=== PATIENT | male | born 1980 | race Caucasian/White ===

== ENCOUNTER 2018-06-25 23:31 | Emergency (ER) | payer OTHER ==
[2018-06-25 23:37] VITALS: RESP 18; TEMP 98.3
[2018-06-26] MEDS ORDERED: SODIUM CHLORIDE 0.9% 1,000 ML IV STA (00:07)
[2018-06-26 00:19] LABS: Anisocytosis Slight; Basophils # (A) 0.1 k/uL (0-0.2); Basophils % (A) 1 %; Eosinophils # (A) 0.2 k/uL (0-0.7); Eosinophils % (A) 2 %; HCT 35.6 % (39.0-53.0); HGB 11.2 gm/dL (13.0-17.5); Hypochromasia Moderate; Lymphocytes # (A) 1.1 k/uL (1.0-4.8); Lymphocytes % (A) 15 %; MCH 34.3 pg (25.0-35.0); MCHC 31.5 g/dL (31.0-37.0); MCV 108.9 fL (80.0-100.0); Macrocytosis Marked; Monocytes # (A) 0.7 k/uL (0-1.0); Monocytes % (A) 9 %; Neutrophils % (A) 70 %; Platelet Count 283 k/uL (150-450); RBC 3.27 m/uL (4.30-5.90); RDW 17.9 % (11.5-15.5); WBC 7.1 k/uL (3.8-10.6)
[2018-06-26 00:20] LABS: Glucose,Whole Blood 112 mg/dL (75-99)
[2018-06-26 00:31] LABS: ALT 32 U/L (21-72); AST 37 U/L (17-59); Albumin 4.3 g/dL (3.5-5.0); Alkaline Phosphatase 88 U/L (38-126); Anion Gap 11 mmol/L; Blood Urea Nitrogen 12 mg/dL (9-20); Calcium 9.8 mg/dL (8.4-10.2); Carbon Dioxide 24 mmol/L (22-30); Chloride 104 mmol/L (98-107); Glucose 89 mg/dL (74-99); Sodium 139 mmol/L (137-145); Total Bilirubin 0.5 mg/dL (0.2-1.3)
[2018-06-26 00:32] LABS: Appearance,Urine Clear (Clear); Bilirubin,Urine Negative (Negative); Blood,Urine Negative (Negative); Color,Urine Yellow; Glucose,Urine (UA) Negative (Negative); Ketones,Urine Negative (Negative); Leukocyte Esterase,Urine Negative (Negative); Nitrite,Urine Negative (Negative); Protein,Urine Trace (Negative); Specific Gravity,Urine 1.015 (1.001-1.035); Urobilinogen,Urine <2.0 mg/dL (<2.0)
--- NOTE | 2018-06-26 00:37 | ED ---
Seizure HPI - General Source: patient, EMS Mode of arrival: EMS Limitations: no limitations <Rox Davis - Last Filed: 06/26/18 02:23> <Ashwini Bocanegra - Last Filed: 06/28/18 03:28> - General Chief Complaint: Seizure Stated Complaint: Seizure Time Seen by Provider: 06/25/18 23:38 - History of Present Illness Initial Comments: 38-year-old male patient presents to the emergency department today for evalua tion after experiencing a seizure. Patient states he was walking down the hallway next he knew he woke up on the floor. Patient apparently hit his head as he does have a laceration to the scalp. Patient denies any current symptoms. Patient states he feels "normal". Denies any headache, blurred vision, double vision, numbness, tingling, or weakness to his extremities. He denies any dizziness or weakness. Patient denies any history of seizures. Patient is currently receiving treatment at [facility] for alcohol withdrawal. He has been at the facility for the last 6 days. Patient denies any recent rash, fever, chills, shortness breath, chest pain, abdominal pain, nausea , vomiting, diarrhea, constipation, back pain, hematuria, dysuria, urinary urgency, urinary frequency, or any other complaints. (Rox Davis) - Related Data Previous Rx's Medication Instructions Recorded chlordiazePOXIDE HCl [Librium] 50 mg PO QID #34 capsule 06/26/18 Allergies Allergy/AdvReac Type Severity Reaction Status Date / Time No Known Allergies Allergy Verified 06/26/18 00:08 Review of Systems ROS Other: All systems not noted in ROS Statement are negative. <Rox Davis - Last Filed: 06/26/18 02:23> ROS Other: All systems not noted in ROS Statement are negative. <Ashwini Bocanegra - Last Filed: 06/28/18 03:28> ROS Statement: Those systems with pertinent positive or pertinent negative responses have been documented in the HPI. Past Medical History Past Medical History: Asthma History of Any Multi-Drug Resistant Organisms: None Reported Past Psychological History: No Psychological Hx Reported Smoking Status: Current every day smoker Past Alcohol Use History: Abuse Past Drug Use History: None Reported <Rox Davis - Last Filed: 06/26/18 02:23> General Exam Limitations: no limitations General appearance: alert, in no apparent distress, other (Physical well- developed, well-nourished adult male patient in no acute distress. Vital signs upon presentation are temperature 98.3F, pulse 107, respirations 18, blood pressure 134/90, pulse ox 98% on room air.) Head exam: Present: other (There is a 3 cm laceration noted to the left posterior parietal scalp.) Eye exam: Present: normal appearance, PERRL, EOMI. Absent: scleral icterus, conjunctival injection, periorbital swelling ENT exam: Present: normal exam, normal oropharynx, mucous membranes moist Respiratory exam: Present: normal lung sounds bilaterally. Absent: respiratory distress, wheezes, rales, rhonchi, stridor Cardiovascular Exam: Present: regular rate, normal rhythm, normal heart sounds. Absent: systolic murmur, diastolic murmur, rubs, gallop, clicks GI/Abdominal exam: Present: soft, normal bowel sounds. Absent: distended, tenderness, guarding, rebound, rigid Neurological exam: Present: alert, oriented X3, CN II-XII intact, other (Strength in all 4 extremities is 5/5.) Psychiatric exam: Present: normal affect, normal mood Skin exam: Present: warm, dry, intact, normal color. Absent: rash <Rox Davis - Last Filed: 06/26/18 02:23> Course Vital Signs 06/25/18 06/26/18 23:32 01:56 Temperature 98.3 F 98.3 F Pulse Rate 107 H 86 Respiratory 18 18 Rate Blood Pressure 134/90 142/88 O2 Sat by Pulse 98 98 Oximetry Procedures - Laceration Laceration #1 Consent Obtained: verbal consent Indication: laceration Site: scalp Size (cm): 3 Description: linear Depth: simple, single layer Type of Sutures: other ([place]) Number of Sutures: 4 Patient Tolerated Procedure: well, no complications <Rox Davis Last Filed: 06/26/18 02:23> Medical Decision Making - Lab Data Result diagrams: 06/25/18 23:47 06/25/18 23:47 - EKG Data -: EKG Interpreted by Pr <Rox Davis Last Filed: 06/26/18 02:23> - Lab Data Result diagrams: 06/25/18 23:47 06/25/18 23:47 <Ashwini Bocanegra - Last Filed: 06/28/18 03:28> - Medical Decision Making 38-year-old male patient presents to the emergency department today for evaluation after having a seizure, falling and striking his head. Physical examination did reveal a 3 cm laceration to the left parietal scalp. No active bleeding. No bony step-off or deformity to firm palpation of the skull. Patient has no neurologic deficits. Patient reports feeling "normal". Labs re viewed and are unremarkable. Did clear patient's C-spine, he does have full range of motion with no pain or limitation. I did repair laceration using janeth. He'll be discharged back to [facility] facility. He will be started on Librium to aid with withdrawn to prevent further seizures. Return parameters were discussed in detail. He verbalizes understanding and agrees with this plan for (Rox Davis) I was available for consultation in the emergency department. The history and physical exam were done by the midlevel provider. I was consulted for this patient's care. I reviewed the case with the midlevel provider and based on their presentation of the patient, I agree with the assessment, medical decision making and plan of care as documented. Chart was dictated using [employer] dictation software. Attempts were made to correct any dictation errors however some typographical errors may persist. (Ashwini Bocanegra) - Lab Data Lab Results 06/25/18 06/25/18 06/26/18 Range/Units 23:47 23:47 00:15 WBC 7.1 (3.8-10.6) k/uL RBC 3.27 L (4.30-5.90) m/uL Hgb 11.2 L (13.0-17.5) gm/dL Hct 35.6 L (39.0-53.0) % MCV 108.9 H (80.0-100.0) fL MCH 34.3 (25.0-35.0) pg MCHC 31.5 (31.0-37.0) g/dL RDW 17.9 H (11.5-15.5) % Plt Count 283 (150-450) k/uL Neutrophils % 70 % Lymphocytes % 15 % Monocytes % 9 % Eosinophils % 2 % Basophils % 1 % Neutrophils # 5.0 (1.3-7.7) k/uL Lymphocytes # 1.1 (1.0-4.8) k/uL Monocytes # 0.7 (0-1.0) k/uL Eosinophils # 0.2 (0-0.7) k/uL Basophils # 0.1 (0-0.2) k/uL Manual Slide Review Performed Hypochromasia Moderate Anisocytosis Slight Macrocytosis Marked Sodium 139 (137-145) mmol/L Potassium 5.0 (3.5-5.1) mmol/L Chloride 104 (98-107) mmol/L Carbon Dioxide 24 (22-30) mmol/L Anion Gap 11 mmol/L BUN 12 (9-20) mg/dL Creatinine 0.61 L (0.66-1.25) mg/dL Est GFR (CKD-EPI)AfAm >90 (>60 ml/min/1.73 sqM) Est GFR (CKD-EPI)NonAf >90 (>60 ml/min/1.73 sqM) Glucose 89 (74-99) mg/dL POC Glucose (mg/dL) (75-99) mg/dL POC Glu [employer]visor ID Calcium 9.8 (8.4-10.2) mg/dL Total Bilirubin 0.5 (0.2-1.3) mg/dL AST 37 (17-59) U/L ALT 32 (21-72) U/L Alkaline Phosphatase 88 (38-126) U/L Total Protein 7.0 (6.3-8.2) g/dL Albumin 4.3 (3.5-5.0) g/dL Urine Color Yellow Urine Appearance Clear (Clear) Urine pH 7.0 (5.0-8.0) Ur Specific [place] 1.015 (1.001-1.035) Urine Protein Trace H (Negative) Urine Glucose (UA) Negative (Negative) Urine Ketones Negative (Negative) Urine Blood Negative (Negative) Urine Nitrite Negative (Negative) Urine Bilirubin Negative (Negative) Urine Urobilinogen <2.0 (<2.0) mg/dL Ur Leukocyte Esterase Negative (Negative) Urine Opiates Screen Not Detected (NotDetected) Ur Oxycodone Screen Not Detected (NotDetected) Urine Methadone Screen Not Detected (NotDetected) Ur Propoxyphene Screen Not Detected (NotDetected) Ur Barbiturates Screen Not Detected (NotDetected) U Tricyclic Antidepress Not Detected (NotDetected) Ur Phencyclidine Scrn Not Detected (NotDetected) Ur Amphetamines Screen Not Detected (NotDetected) U Methamphetamines Scrn Not Detected (NotDetected) U Benzodiazepines Scrn Not Detected (NotDetected) Urine Cocaine Screen Not Detected (NotDetected) U Marijuana (THC) Screen Not Detected (NotDetected) 06/26/18 Range/Units 00:18 WBC (3.8-10.6) k/uL RBC (4.30-5.90) m/uL Hgb (13.0-17.5) gm/dL Hct (39.0-53.0) % MCV (80.0-100.0) fL MCH (25.0-35.0) pg MCHC (31.0-37.0) g/dL RDW (11.5-15.5) % Plt Count (150-450) k/uL Neutrophils % % Lymphocytes % % Monocytes % % Eosinophils % % Basophils % % Neutrophils # (1.3-7.7) k/uL Lymphocytes # (1.0-4.8) k/uL Monocytes # (0-1.0) k/uL Eosinophils # (0-0.7) k/uL Basophils # (0-0.2) k/uL Manual Slide Review Hypochromasia Anisocytosis Macrocytosis Sodium (137-145) mmol/L Potassium (3.5-5.1) mmol/L Chloride (98-107) mmol/L Carbon Dioxide (22-30) mmol/L Anion Gap mmol/L BUN (9-20) mg/dL Creatinine (0.66-1.25) mg/dL Est GFR (CKD-EPI)AfAm (>60 ml/min/1.73 sqM) Est GFR (CKD-EPI)NonAf (>60 ml/min/1.73 sqM) Glucose (74-99) mg/dL POC Glucose (mg/dL) 112 H (75-99) mg/dL POC Glu [employer]visor ID Kae Duvall Calcium (8.4-10.2) mg/dL Total Bilirubin (0.2-1.3) mg/dL AST (17-59) U/L ALT (21-72) U/L Alkaline Phosphatase (38-126) U/L Total Protein (6.3-8.2) g/dL Albumin (3.5-5.0) g/dL Urine Color Urine Appearance (Clear) Urine pH (5.0-8.0) Ur Specific [place] (1.001-1.035) Urine Protein (Negative) Urine Glucose (UA) (Negative) Urine Ketones (Negative) Urine Blood (Negative) Urine Nitrite (Negative) Urine Bilirubin (Negative) Urine Urobilinogen (<2.0) mg/dL Ur Leukocyte Esterase (Negative) Urine Opiates Screen (NotDetected) Ur Oxycodone Screen (NotDetected) Urine Methadone Screen (NotDetected) Ur Propoxyphene Screen (NotDetected) Ur Barbiturates Screen (NotDetected) U Tricyclic Antidepress (NotDetected) Ur Phencyclidine Scrn (NotDetected) Ur Amphetamines Screen (NotDetected) U Methamphetamines Scrn (NotDetected) U Benzodiazepines Scrn (NotDetected) Urine Cocaine Screen (NotDetected) U Marijuana (THC) Screen (NotDetected) - EKG Data EKG Comments: EKG obtained at 2341 shows sinus tachycardia with a ventricular rate of 103, UT interval 168, QRS duration 80, QT 356, QTc 466. No evidence of ST elevation or depression. (Rox Davis) Disposition Is patient prescribed a controlled substance at d/c from ED?: No Time of Disposition: 01:07 <Rox Davis - Last Filed: 06/26/18 02:23> <Ashwini Bocanegra - Last Filed: 06/28/18 03:28> Clinical Impression: Alcohol withdrawal seizure Disposition: HOME SELF-CARE Condition: Good Instructions (If sedation given, give patient instructions): Alcohol Withdrawal (ED), New-Onset Seizure in Adults (ED) Additional Instructions: Take medications as directed. Follow up with your primary care physician for re check in 1-2 days. Return to the emergency department for recheck for any new, worsening, or concerning symptoms. Prescriptions: chlordiazePOXIDE HCl [Librium] 50 mg PO QID #34 capsule Referrals: Angela Penny MD [Primary Care Provider] - 1-2 days
[2018-06-26 00:45] LABS: Amphetamine Screen,Urine Not Detected (NotDetected); Barbiturate Screen,Urine Not Detected (NotDetected); Benzodiazepines Screen,Urine Not Detected (NotDetected); Cocaine Screen,Urine Not Detected (NotDetected); Methadone Screen, Urine Not Detected (NotDetected); Opiate Screen,Urine Not Detected (NotDetected); Oxycodone Screen, Urine Not Detected (NotDetected); Phencyclidine Screen,Urine Not Detected (NotDetected); Tricyclic Antidepressant,Urine Not Detected (NotDetected)
[2018-06-26 00:46] LABS: Urn Cannabinoid Scrn Not Detected (NotDetected)
[2018-06-26] MEDS ORDERED: chlordiazePOXIDE 25 MG CAP PO ONE (01:30)
[2018-06-26 01:57] VITALS: BP 142/88; PULSE 86
== END 2018-06-26 01:57 | disposition home or self-care (01) ==
LOC: EC 23:31 → SUPCPDRO 23:31 → EC 06-26 01:57
DX: F10.239 Alcohol dependence with withdrawal, unspecified (principal); S01.01XA Laceration without foreign body of scalp, initial encounter; R00.0 Tachycardia, unspecified; F17.200 Nicotine dependence, unspecified, uncomplicated; W01.10XA Fall on same level from slipping, tripping and stumbling with subsequent striking against unspecified object, initial encounter; Y93.01 Activity, walking, marching and hiking; Y92.198 Other place in other specified residential institution as the place of occurrence of the external cause
CPT/HCPCS: 12002; 36415; 80053; 80306; 81003; 85025; 93005; 96360; 96361; 99285